=== PATIENT | male | born 1970 | race Caucasian/White ===

== ENCOUNTER 2016-12-25 01:56 | Emergency (ER) | payer OTHER | END 2016-12-25 04:20 | disposition home or self-care (01) | DX: R07.89 Other chest pain (principal); I10 Essential (primary) hypertension; E78.00 Pure hypercholesterolemia, unspecified; K21.9 Gastro-esophageal reflux disease without esophagitis; I20.9 Angina pectoris, unspecified; Z79.82 Long term (current) use of aspirin ==

== ENCOUNTER 2018-04-29 18:12 | Outpatient (CLI) | payer OTHER | END 2018-04-29 18:13 | disposition home or self-care (01) | LOC: LAB 18:12 | PROVIDERS: ATTEND Family Medicine | DX: E87.5 Hyperkalemia (principal) | CPT/HCPCS: 36415; 84132 ==

== ENCOUNTER 2019-06-18 04:07 | Outpatient (CLI) | payer OTHER | END 2019-06-18 04:08 | disposition critical access hospital (66) | LOC: EMS 04:07 | PROVIDERS: ATTEND Surgery | DX: M54.5 Low back pain (principal) | CPT/HCPCS: A0425; A0427 ==

== ENCOUNTER 2019-06-18 04:15 | Emergency (ER) | payer OTHER ==
[2019-06-18] MEDS ORDERED: SODIUM CHLORIDE 0.9% 1,000 ML IV ONE (04:21)
[2019-06-18] MEDS ORDERED: DEXAMETHASONE 10 MG/ML VIAL IVP STA (04:21)
[2019-06-18] MEDS ORDERED: KETOROLAC 30 MG/ML VIAL IVP STA (04:21)
--- NOTE | 2019-06-18 04:23 | ED Physician Documentation ---
PD HPI BACK PAIN - Stated complaint Stated Complaint: BACK PAIN - History obtained from History obtained from: Patient, EMS - History of Present Illness Timing - onset: Today Timing - duration: Hours Timing - details: Abrupt onset, Still present Location: Lower, Right Quality: Pain, Spasm, Sharp Associated symptoms: No: Fever, Weakness, Numbness, Incontinent of urine, Unable to urinate, Incontinent of stool Improves with: Rest, Ice, Position Worsened by: Movement Contributing factors: Lifting Similar symptoms before: Diagnosis (lumbar spasm) Recently seen: Not recently seen - Additional information Additional information: 48-year-old male with a remote history of back injury rolled over in bed this morning and felt a pop and has severe pain and is unable to move without severe pain. He is brought to the hospital by ambulance and given IV fentanyl with some improvement. He has recently been helping on a project and lifting 80# bags of concrete. Review of Systems Constitutional: denies: Fever Eyes: denies: Decreased vision Ears: denies: Ear pain Nose: denies: Congestion Throat: denies: Sore throat Cardiac: denies: Chest pain / pressure, Palpitations Respiratory: denies: Dyspnea, Cough GI: denies: Abdominal Pain, Nausea, Vomiting : denies: Dysuria, Frequency PD PAST MEDICAL HISTORY - Past Medical History Cardiovascular: Hypertension, High cholesterol, Angina GI: GERD - Past Surgical History Past Surgical History: No - Present Medications Home Medications: Ambulatory Orders Medication Instructions Recorded Confirmed Aspirin Chewable [[facility] 81 mg PO DAILY 12/03/15 06/18/19 Aspirin] Atorvastatin Calcium [Lipitor] 40 mg PO DAILY 12/03/15 06/18/19 Lisinopril 20 mg PO DAILY 12/03/15 06/18/19 Omeprazole [Prilosec] 20 mg PO DAILY 12/03/15 06/18/19 Cyclobenzaprine [Flexeril] 10 mg PO TID PRN #20 tablet 06/18/19 Hydrocodone/Acetaminophen 1 - 2 each PO Q6H PRN #14 tablet 06/18/19 [Hydrocodon-Acetaminophen 5-325] Verapamil HCl [Verapamil ER] 120 mg PO DAILY 06/18/19 06/18/19 - Allergies Allergies/Adverse Reactions: Allergies Allergy/AdvReac Type Severity Reaction Status Date / Time No Known Drug Allergies Allergy Verified 12/25/16 02:11 - Social History Does the pt smoke?: No Smoking Status: Never smoker - Immunizations Immunizations are current?: No Immunizations: TDAP >10years/unknown PD ED PE NORMAL - Vitals Vital signs reviewed: Yes - General General: Alert and oriented X 3, No acute distress, Well developed/nourished, Other (The patient is laying on the left side not moving) - HEENT HEENT: Atraumatic, PERRL, EOMI - Neck Neck: Supple, no meningeal sign - Cardiac Cardiac: RRR, No murmur - Respiratory Respiratory: No respiratory distress, Clear bilaterally - Abdomen Abdomen: Normal bowel sounds, Soft, Non tender, Non distended, No organomegaly - Back Back: No CVA TTP, Other (There is tenderness to the lumbar paraspinous muscles from the CVA to the illiac on the right side only there is no bony point tenderness. ) - Derm Derm: Normal color, Warm and dry, No rash - Extremities Extremities: No deformity, No edema - Neuro Neuro: Alert and oriented X 3, child care assistant 2-12 intact, No motor deficit, No sensory deficit, Normal speech Eye Opening: Spontaneous Motor: Obeys Commands Verbal: Oriented GCS Score: 15 - Psych Psych: Normal mood, Normal affect Results - Vitals Vitals: Vital Signs - 24 hr 06/18/19 06/18/19 06/18/19 04:19 04:44 05:25 Temperature 37.0 C Heart Rate 65 67 Respiratory 17 16 18 Rate Blood Pressure 97/55 L O2 Saturation 96 100 Oxygen O2 Source Room air PD MEDICAL DECISION MAKING - ED course Complexity details: reviewed results, re-evaluated patient, considered differential, d/w patient ED course: 48-year-old male with acute lumbar spasm has a locked back and he is administered saline dexamethasone and Toradol. This helps and dilaudid 1mg IV helps even more. Departure - Departure Disposition: 01 Home, Self Care Clinical Impression: Lumbar strain Qualifiers: Encounter type: initial encounter Qualified Code(s): S39.012A - Strain of muscle, fascia and tendon of lower back, initial encounter Condition: Stable Instructions: ED Sprain Strain Lumbar, ED Spasm Back No Trauma Follow-Up: JOSÉ LUIS BALBUENA MD [Primary Care Provider] - Prescriptions: Cyclobenzaprine [Flexeril] 10 mg PO TID PRN #20 tablet PRN Reason: Spasms Hydrocodone/Acetaminophen [Hydrocodon-Acetaminophen 5-325] 1 - 2 each PO Q6H PRN #14 tablet PRN Reason: pain Forms: Activity restrictions
[2019-06-18] MEDS ORDERED: HYDROmorphone 1 MG/ML CARPUJECT IVP STA (05:24)
[2019-06-18 05:48] VITALS: BP 97/57
== END 2019-06-18 06:11 | disposition home or self-care (01) ==
LOC: EDUNIT# → ED 04:15
DX: S39.012A Strain of muscle, fascia and tendon of lower back, initial encounter (principal); R25.2 Cramp and spasm; X50.0XXA Overexertion from strenuous movement or load, initial encounter; I10 Essential (primary) hypertension; Z79.899 Other long term (current) drug therapy; Z79.82 Long term (current) use of aspirin
CPT/HCPCS: 99282; 99284; J1170

== ENCOUNTER 2019-09-21 16:55 | Outpatient (CLI) | payer OTHER | END 2019-09-21 16:56 | disposition home or self-care (01) | LOC: LAB 16:55 | PROVIDERS: ATTEND Family Medicine | DX: E87.5 Hyperkalemia (principal) | CPT/HCPCS: 36415; 84132 ==

== ENCOUNTER 2023-08-12 10:33 | Outpatient (CLI) | payer OTHER ==
--- NOTE | 2023-08-12 10:32 | CARDIAC PROCEDURE NOTE ---
Stress Test Report Service Date: 08/12/23 Service Time: 11:00 Ordering Provider: Renny Fishman D.O. Indication for Test: Assess chest discomfort and exertional dyspnea. Significant Medical History: Kenney has a complex medical history that includes longstanding hypertension, migraine headaches (chronically treated with prophylactic verapamil), obstructive sleep apnea (previously treated with CPAP but not recently), hyperlipidemia and a prior diagnosis of Prinzmetal's angina. 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 His recollection is that something was put into his coronaries arteries that may have caused a blockage, but he was not offered a stent. He had another stress test in 2013 that he recalls being unremarkable. He has continued to have intermittent episodes of similar, nonexertional, stabbing lower chest pain over the years; nitrates have been ineffective for these episodes. For the past several months in addition to this ongoing episodic discomfort he has also had episodes of intermittent and very limiting sudden onset exertional dyspnea/breathlessness, at times associated a different type of lateral chest wall pain. He is clear that the new episodic exertional dyspnea is most concerning to him. He also had an unfortunate occurrence when seen for a trigger finger injection in March, during which he was mistakenly injected with medroxyprogesterone instead of methylprednisolone. He subsequently began to experience significant and very troubling intermittent "charley horses" in his legs, raising concern for a procoagulant effect of the medroxyprogesterone and for which lower extremity duplex vascular ultrasound exam showed no evidence of peripheral DVT. 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 He comments that with this new position he has gained weight, specifically after losing almost 50 pounds a couple of years ago he has gained approximately 20 pounds back. He may be prediabetic. Today's test is ordered as an initial evaluation to reassess his chest pain and "halting" exertional dyspnea episodes. Cardiac Risk Factors: He has never been a tobacco smoker but likely has all of the other major coronary risk factors to some extent, including hypertension, hyperlipidemia (not treated), family history of heart disease, including his mother and brother who underwent bypass surgery and his sister who had a stent (notably his 2 siblings were diabetic though he is not); perhaps he is pre-diabetic. His untreated obstructive sleep apnea may also be another adverse predictor. Type of Stress Test: ETT with Echocardiography Procedure: -Exercise Treadmill Test- After signing informed consent, the patient performed treadmill exercise using a Louie protocol. The patient exercised for 7 minutes 18 seconds and achieved a peak heart rate of 160 (95 percent predicted maximum heart rate for age), and an estimated workload of 9.1 METS. The test was terminated due to fatigue/shortness of breath. Resting heart rate: 81 Peak heart rate: 160 Normal response to exercise. Resting BP: 132/85 Peak BP: 201/83 Normal BP response to exercise. Rhythm during exercise: sinus rhythm throughout, without ectopy. Symptoms: He experienced no chest pressure/discomfort/pain whatsoever and the dyspnea that he described (which ultimately became limiting) was of gradual onset and was not as severe or suddenly limiting as that which he has experienced spontaneously. EKG at rest showed and was of gradual onset. Normal sinus rhythm with low precordial voltages; there is a significant Q-wave in lead III and smaller nonsignificant q waves in leads II, aVF and V6. These could be indicative of an age-indeterminate prior inferior infarct. EKG at peak stress showed J-point depression with upsloping ST segments, NOT meeting diagnostic EKG criteria for ischemia. In Recovery heart rate rapidly/normally declined, with slower decrease in BP (HR was 108, BP 151/90 at 7:00). No imaging was ordered with this stress test. IJose Elias MD, was present throughout this treadmill stress study and supervised it in its entirety. Summary: 1) Exercise tolerance significantly reduced for age and sex as evidenced by SAHARA of 25%. 2) Borderline abnormal resting EKG, but with an interpretable ST/T pattern. 3) Adequate level of exercise was achieved on this treadmill stress test. 4) Normal BP response to exercise. 5) No ischemic changes by EKG criteria were seen at peak stress. 6) No imaging was ordered with this test. Conclusions and Recommendations: 1) Overall this is a reassuring Louie protocol ETT, not revealing symptom or EKG evidence of inducible ischemia, nor showing significant oxygen desaturation on room air. 2) The cause/mechanism of his sudden, incapacitating, breathless episodes remains undetermined. Together with his reported history of Prinzmetal's Angina and elevated cardiac risk factor profile it may be useful for him to undergo formal Cardiology consultation for longitudinal review, medical optimization and potentially, additional assessment of his dyspneic episodes.
== END 2023-08-12 10:34 | disposition home or self-care (01) ==
LOC: DI 10:33
PROVIDERS: ATTEND Family Medicine
DX: I10 Essential (primary) hypertension (principal); E78.5 Hyperlipidemia, unspecified; R06.00 Dyspnea, unspecified; I20.9 Angina pectoris, unspecified; Z82.49 Family history of ischemic heart disease and other diseases of the circulatory system; Z83.3 Family history of diabetes mellitus; G47.30 Sleep apnea, unspecified
CPT/HCPCS: 93017

== ENCOUNTER 2023-10-02 15:07 | Outpatient (CLI) | payer OTHER ==
--- NOTE | 2023-10-02 20:33 | Ultrasound Report ---
PROCEDURE: Testicle INDICATIONS: BILATERAL GROIN PAIN TECHNIQUE: Real-time scanning was performed of the scrotum and testicles, with image documentation. Color and p ulse Doppler interrogation was performed of both testicles. COMPARISON: None. FINDINGS: Right: Testicle is normal in size at 4.8 x 2.6 x 3.5 cm, and homogenous in echotexture. Epididymis is normal in overall size and morphology. No hydrocele. No varicoceles. Overlying scrotal skin is n ormal in thickness. Possible small right inguinal canal hernia measures 9 mm Left: Testicle is normal in size at 4.7 x 2.3 x 3.1 cm, and homogeneous in echotexture. Epididymis is normal in overall size and morphology. No hydrocele. No varicoceles. Overlying scrotal skin is n ormal in thickness. Doppler: Color and pulse Doppler demonstrate normal and symmetric arterial flow in both testicles. IMPRESSION: Unremarkable ultrasound of testes. No evidence of torsion. Area possible small inguinal canal hernia without bowel measures 9 mm Reviewed by: Tone Nunez MD on 10/02/2023 7:32 PM [place] Approved by: Tone Nunez MD on 10/02/2023 7:32 PM [facility] Station ID: [id number]
== END 2023-10-02 15:08 | disposition home or self-care (01) ==
LOC: DI 15:07
PROVIDERS: ATTEND Physician Assistant
DX: R10.30 Lower abdominal pain, unspecified (principal)

== ENCOUNTER 2024-01-15 16:19 | Outpatient (CLI) | payer OTHER | END 2024-01-15 16:20 | disposition home or self-care (01) | LOC: RT 16:19 | PROVIDERS: ATTEND Internal Medicine | DX: R06.02 Shortness of breath (principal) | CPT/HCPCS: 94010; 94727; 94729 ==

== ENCOUNTER 2024-03-01 15:53 | Outpatient (CLI) | payer OTHER ==
--- NOTE | 2024-03-01 16:52 | XRAY Report ---
PROCEDURE: Hip w/Pelvis 2-3V RT INDICATIONS: RIGHT HIP PAIN TECHNIQUE: 2 views of the hip were acquired. COMPARISON: None. FINDINGS: Bones: No fractures or dislocations. No suspicious bony lesions. Mild bilateral degenerative hip joint space narrowing. No erosions. Soft tissues: No suspicious soft tissue calcifications or masses. IMPRESSION: Mild bilateral degenerative hip joint space narrowing. Reviewed by: Chari Lyle MD on 03/01/2024 4:51 PM PDT Approved by: Chari Lyle MD on 03/01/2024 4:51 PM PDT Station ID: [id number]
== END 2024-03-01 15:54 | disposition home or self-care (01) ==
LOC: DI 15:53
PROVIDERS: ATTEND Physician Assistant Surgical
DX: M16.0 Bilateral primary osteoarthritis of hip (principal)